=== PATIENT | female | born 1945 | race African-American/Black ===

== ENCOUNTER 2016-07-12 16:30 | Emergency (ER) | payer MEDICARE, OTHER ==
[~2016-07-12] VITALS: Ht 162.6 cm; Wt 56.7 kg
[~2016-07-12 16:30] MED LIST: MULT-208 PO
[2016-07-12 16:45] VITALS: BP 131/84
[2016-07-12] MEDS ORDERED: CLINDAMYCIN HCL 150 MG CAPSULE. PO ONE ×2 (17:15)
[2016-07-12] MEDS ORDERED: CLIN-44 PO (17:16)
--- NOTE | 2016-07-12 17:16 | PHYS DOC ---
Past Medical History Past Medical History: Hypertension Past Surgical History: No Surgical History Alcohol Use: None Drug Use: None Adult General Chief Complaint Chief Complaint: OTHER COMPLAINTS HPI HPI Patient is a 71 year old female who presents with complaint of pain and swelling to the upper lip. Patient states that she accidentally bit her lip approximately 3-4 days ago on the right side. Patient states that she started getting swelling over the last 24-48 hours. Patient noted drainage of green liquid from inside her mouth prior to coming into the emergency department for evaluation. The patient is concerned that she has developed an infection of her lip. Patient denies any other symptoms. Patient states since the drainage occurred her pain and swelling has actually improved. The patient tried calling primary physician, Dr. Rodriguez, however she was unable to schedule an appointment and thus came to the emergency department for evaluation. Patient denies any fevers and states that she feels better but is concerned that she may need to be on antibiotics for treatment. Review of Systems Review of Systems Constitutional: Denies fever or chills [] Eyes: Denies change in visual acuity, redness, or eye pain [] HENT: Upper lip swelling and pain, Denies nasal congestion or sore throat [] Respiratory: Denies cough or shortness of breath [] Cardiovascular: Denies chest pain or edema [] GI: Denies abdominal pain, nausea, vomiting, bloody stools or diarrhea [] : Denies dysuria or hematuria [] Musculoskeletal: Denies back pain or joint pain [] Integument: Denies rash or skin lesions [] Neurologic: Denies headache, focal weakness or sensory changes [] Current Medications Current Medications Current Medications Medications (Trade) Dose Ordered Sig/Promise Start Time Stop Time Status Last Admin Dose Admin Clindamycin HCl (Cleocin) 450 mg 1X ONCE 07/12/16 17:15 07/12/16 17:16 DC Allergies Allergies Allergies Coded Allergies Type Severity Reaction Last Updated Verified Sulfa (Sulfonamide Antibiotics) Allergy Intermediate 01/01/14 No latex Allergy Intermediate Rash 01/01/14 Yes Physical Exam Physical Exam Constitutional: Alert, afebrile, no acute distress. [] HENT: Normocephalic, atraumatic, moderate soft tissue swelling of upper lip with induration along right side of upper lip, small amount of purulent drainage from open lesion within lip mucosal surface, bilateral external ears normal, oropharynx moist, no oral exudates, nose normal. [] Eyes: PERRLA, EOMI, conjunctiva normal, no discharge. [] Neck: Normal range of motion, no tenderness, supple, no stridor. [] Cardiovascular:Heart rate regular rhythm, no murmur [] Lungs & Thorax: Bilateral breath sounds clear to auscultation [] Abdomen: Bowel sounds normal, soft, no tenderness, no masses, no pulsatile masses. [] Skin: Warm, dry, no erythema, no rash. [] Back: No tenderness, no CVA tenderness. [] Extremities: No tenderness, no cyanosis, no clubbing, ROM intact, no edema. [] Neurologic: Alert and oriented X 3, normal motor function, normal sensory function, no focal deficits noted. [] Current Patient Data Vital Signs Vital Signs Date Time Temp Pulse Resp B/P Pulse Ox O2 Delivery O2 Flow Rate FiO2 07/12/16 16:45 98.4 84 16 131/84 98 Room Air 98.4 EKG EKG Not performed [] Radiology/Procedures Radiology/Procedures Not performed [] Course & Med Decision Making Course & Med Decision Making Pertinent Labs and Imaging studies reviewed. (See chart for details) Patient appears to have a small lip abscess that is already draining at this time. The patient will be started on clindamycin for further treatment. Advised follow-up with Dr. Rodriguez in 2-3 days to ensure improvement and resolution of symptoms. Advised return to emergency department for any worsening symptoms. Patient was understanding and in agreement with treatment plan. Dragon Disclaimer Dragon Disclaimer This electronic medical record was generated, in whole or in part, using a voice recognition dictation system. Departure Departure Impression: Primary Impression: Abscess of lip Disposition: 01 HOME, SELF-CARE Condition: IMPROVED Referrals: BALJIT RODRIGUEZ (PCP) Patient Instructions: Abscess Additional Instructions: Follow-up in 2-[address] Rodriguez. Return to the emergency department for any worsening symptoms. Scripts Clindamycin Hcl 150 Mg [id number] Mg PO TID #90 CAP Prov:JOELLE HANKINS MD 07/12/16 JOELLE HANKINS MD Jul 12, 2016 17:16
== END 2016-07-12 17:51 | disposition home or self-care (01) ==
LOC: ER 16:30
DX: K13.0 Diseases of lips (principal); I10 Essential (primary) hypertension
CPT/HCPCS: 99283

== ENCOUNTER 2017-03-06 19:06 | Emergency (ER) | payer OTHER ==
[~2017-03-06] VITALS: Ht 162.6 cm; Wt 54.4 kg
[~2017-03-06 19:06] MED LIST changes: +CLIN150C14 PO
[2017-03-06 19:33] LABS: BASO # 0.1 x10^3/uL (0.0-0.2); BASO % 1 % (0-3); EOS % 2 % (0-3); HEMATOCRIT 29.2 % (36.0-47.0); HEMOGLOBIN 9.4 g/dL (12.0-15.5); LYMPH # 1.2 x10^3/uL (1.0-4.8); LYMPH % 21 % (24-48); MEAN CORPUSCULAR HEMOGLOBIN 29 pg (25-35); MEAN CORPUSCULAR HGB CONC 32 g/dL (31-37); MEAN CORPUSCULAR VOLUME 89 fL (79-100); MONO % 8 % (0-9); NEUT % 68 % (31-73); PLATELET COUNT 507 x10^3/uL (140-400); RED BLOOD COUNT 3.27 x10^6/uL (3.50-5.40); RED CELL DISTRIBUTION WIDTH 16.2 % (11.5-14.5); WHITE BLOOD COUNT 5.8 x10^3/uL (4.0-11.0)
[2017-03-06] MEDS ORDERED: IV NORMAL SALINE 1000ML BAG 1,000 ML IV ONE (19:45)
[2017-03-06 19:47] LABS: CALCIUM 8.6 mg/dL (8.5-10.1); CREATININE 0.7 mg/dL (0.6-1.0); GFR 99.5; POTASSIUM 3.6 mmol/L (3.5-5.1)
--- NOTE | 2017-03-06 19:48 | PHYS DOC ---
Past Medical History Past Medical History: Hypertension, Other Additional Past Medical Histor: UNKNOWN GI Past Surgical History: Other Additional Past Surgical Histo: OSTOMY PLACED Alcohol Use: None Drug Use: None Adult General Chief Complaint Chief Complaint: RECTAL BLEED HPI HPI Patient is a 71 year old female who is a very poor historian presenting to the ED today complaining of rectal bleeding. Patient states she had abdominal surgery 1 week ago at [facility] and ended up with a colostomy. Patient cannot tell what kind of surgery she had. She states she told EMS she needs to go to they brought her to this hospital. Patient is a poor historian. Denies any abdominal pain nausea vomiting. She states she's had problems with gas post op and today she sat on the toilet to have a bowel movement and had a chunk of blood that passed through relieving the gas pressure, she states she feels better. She is denying any abdominal pain or vomiting. She states she has an appointment with her general surgeon tomorrow. Patient does not know the name of the surgeon either. [facility] states patient had 8 oz of blood during the rectal bleeding. Review of Systems Review of Systems Constitutional: Denies fever or chills [] Eyes: Denies change in visual acuity, redness, or eye pain [] HENT: Denies nasal congestion or sore throat [] Respiratory: Denies cough or shortness of breath [] Cardiovascular: No additional information not addressed in HPI [] GI: Reports bloody stool. Denies abdominal pain, nausea, vomiting : Denies dysuria or hematuria [] Musculoskeletal: Denies back pain or joint pain [] Integument: Denies rash or skin lesions [] Neurologic: Denies headache, focal weakness or sensory changes [] All other systems were reviewed and found to be within normal limits, except as documented in this note. Current Medications Current Medications Current Medications Medications (Trade) Dose Ordered Sig/Promise Start Time Stop Time Status Last Admin Dose Admin Iohexol (Omnipaque 300 Mg/ml) 75 ml 1X ONCE 03/06/17 20:30 03/06/17 20:31 DC 03/06/17 20:36 75 ML Sodium Chloride 1,000 ml @ 1,000 mls/hr 1X ONCE 03/06/17 19:45 03/06/17 20:44 DC 03/06/17 20:17 1,000 MLS/HR Allergies Allergies Allergies Coded Allergies Type Severity Reaction Last Updated Verified Sulfa (Sulfonamide Antibiotics) Allergy Intermediate 01/01/14 No latex Allergy Intermediate Rash 01/01/14 Yes Physical Exam Physical Exam Constitutional: Well developed, well nourished, no acute distress, non-toxic appearance. [] HENT: Normocephalic, atraumatic, bilateral external ears normal, oropharynx moist, no oral exudates, nose normal. [] Eyes: PERRLA, EOMI, conjunctiva normal, no discharge. [] Neck: Normal range of motion, no tenderness, supple, no stridor. [] Cardiovascular:Heart rate regular rhythm, no murmur [] Lungs & Thorax: Bilateral breath sounds clear to auscultation [] Abdomen: Midline abdominal laceration noted with well approximated mary. Colostomy noted on the left side of the abdomen with normal stools, no blood. No abdominal tenderness on exam. Bowel sounds normal, soft, no masses, no pulsatile masses. [] Skin: Warm, dry, no erythema, no rash. [] Back: No tenderness, no CVA tenderness. [] Extremities: No tenderness, no cyanosis, no clubbing, ROM intact, no edema. [] Neurologic: Alert and oriented X 3, normal motor function, normal sensory function, no focal deficits noted. [] Psychologic: Affect normal, judgement normal, mood normal. [] Current Patient Data Vital Signs Vital Signs Date Time Temp Pulse Resp B/P (MAP) Pulse Ox O2 Delivery O2 Flow Rate FiO2 03/06/17 19:28 98.5 80 16 138/80 (99) 99 Room Air 98.5 Lab Values Laboratory Tests Test 03/06/17 19:18 03/06/17 19:20 03/06/17 19:26 Stool Occult Blood Positive (NEG) Lipase 100 U/L (73-393) White Blood Count 5.8 x10^3/uL (4.0-11.0) Red Blood Count 3.27 x10^6/uL (3.50-5.40) L Hemoglobin 9.4 g/dL (12.0-15.5) L Hematocrit 29.2 % (36.0-47.0) L Mean Corpuscular Volume 89 fL (79-100) Mean Corpuscular Hemoglobin 29 pg (25-35) Mean Corpuscular Hemoglobin Concent 32 g/dL (31-37) Red Cell Distribution Width 16.2 % (11.5-14.5) H Platelet Count 507 x10^3/uL (140-400) H Neutrophils (%) (Auto) 68 % (31-73) Lymphocytes (%) (Auto) 21 % (24-48) L Monocytes (%) (Auto) 8 % (0-9) Eosinophils (%) (Auto) 2 % (0-3) Basophils (%) (Auto) 1 % (0-3) Neutrophils # (Auto) 3.9 x10^3uL (1.8-7.7) Lymphocytes # (Auto) 1.2 x10^3/uL (1.0-4.8) Monocytes # (Auto) 0.5 x10^3/uL (0.0-1.1) Eosinophils # (Auto) 0.1 x10^3/uL (0.0-0.7) Basophils # (Auto) 0.1 x10^3/uL (0.0-0.2) Segmented Neutrophils % 75 % (35-66) H Lymphocytes % 20 % (24-48) L Monocytes % 5 % (0-10) Platelet Estimate Increased (ADEQUATE) Hypochromasia Slight Anisocytosis Slight Target Cells Occ Tear Drop Cells Occ Helmet Cells Occ Sodium Level 140 mmol/L (136-145) Potassium Level 3.6 mmol/L (3.5-5.1) Chloride Level 102 mmol/L (98-107) Carbon Dioxide Level 32 mmol/L (21-32) Anion Gap 6 (6-14) Blood Urea Nitrogen 10 mg/dL (7-20) Creatinine 0.7 mg/dL (0.6-1.0) Estimated GFR (Cockcroft-Gault) 99.5 BUN/Creatinine Ratio 14 (6-20) Glucose Level 118 mg/dL (70-99) H Calcium Level 8.6 mg/dL (8.5-10.1) Total Bilirubin 0.1 mg/dL (0.2-1.0) L Aspartate Amino Transferase (AST) 28 U/L (15-37) Alanine Aminotransferase (ALT) 21 U/L (14-59) Alkaline Phosphatase 165 U/L (46-116) H Total Protein 7.0 g/dL (6.4-8.2) Albumin 2.3 g/dL (3.4-5.0) L Albumin/Globulin Ratio 0.5 (1.0-1.7) L Laboratory Tests 03/06/17 19:20 Laboratory Tests 03/06/17 19:26 EKG EKG [] Radiology/Procedures Radiology/Procedures [] Course & Med Decision Making Course & Med Decision Making Pertinent Labs and Imaging studies reviewed. (See chart for details) This is a 71-year-old female patient presenting to the ED today with 1 episode of bloody stool. Patient had what appears to be colon resection with colostomy on Monday last week at [facility]. She is a very poor historian but she doesn' t know why they did the procedure. She states she had gas problems and today she sat on the toilet and small amount of blood passed through her rectum and relieved her gas pressure. She states she has an appointment with her general surgeon tomorrow and does not know the name of the surgeon. [facility] [place] [facility], prison was contacted who stated patient had 8 OZ of blood from rectum today. Patient's family member brought some paperwork that shows patient underwent an exploratory laparotomy with tumor debulking bilateral salpingo-oophorectomy with diverting ostomy at [facility]. Patient's hemoglobin is 9.4, hematocrit is 29.2, CMP with ALK of 165, positive Hemoccult. Patient is alert and oriented. Vitals are stable including blood pressure 138/80, heart rate of 80, O2 sats of 99% on room air, temperature 98.5 , respirations of [address] of the abdomen and pelvic could not identify anything acute specifically related to postop issues. 23:[address] Ma at who accepted patient for admission at , patient to be transferred by EMS. Dragon Disclaimer Dragon Disclaimer This electronic medical record was generated, in whole or in part, using a voice recognition dictation system. Departure Departure Impression: Primary Impression: Rectal bleed Disposition: 05 TRANSFER OTHER Condition: STABLE Referrals: BALJIT GARCIA (PCP) JOSEPHINE LÓPEZ APRN Mar 06, 2017 19:48
[2017-03-06 20:00] LABS: ALBUMIN 2.3 g/dL (3.4-5.0); ALBUMIN/GLOBULIN RATIO 0.5 (1.0-1.7); TOTAL BILIRUBIN 0.1 mg/dL (0.2-1.0)
[2017-03-06 20:24] LABS: NEG OBC FOB NEG; POS OBC FOB POS
[2017-03-06] MEDS ORDERED: IOHEXOL 300 MG/ML 100ML VIAL. IV ONE (20:30)
[2017-03-06 20:45] LABS: ANISOCYTOSIS SLIGHT; HELMET CELLS OCC; HYPOCHROMIA SLIGHT; PLT ESTIMATE INCREASED (ADEQUATE); TARGET CELLS OCC; TEAR DROP CELLS OCC
--- NOTE | 2017-03-06 22:01 | RAD ---
CT abdomen and pelvis with contrast 03/06/2017 Clinical indication: Rectal bleeding status post colon resection. COMPARISON: None. TECHNIQUE: Multiple CT images of the abdomen and pelvis were obtained following the intravenous administration of iodinated contrast material. *One or more of the following individualized dose reduction techniques were utilized for this examination: 1. Automated exposure control. 2. Adjustment of the mA and/or kV according to patient size. 3. Use of iterative reconstruction technique. FINDINGS: There is mild linear atelectasis in both lung bases. There is mild cardiomegaly without significant pericardial effusion. The examination is significantly limited due to technique. There are multiple perihepatic masses and a few intrahepatic masses. Health Support Specialist right lobe hepatic mass at junctions hepatic segment 5/6 measures 2.3 x 1.3 cm series 2/image 24. Partially distended gallbladder unremarkable. Spleen, adrenal glands, pancreas and kidneys are grossly unremarkable. There is infrarenal ectasia of the abdominal aorta with moderate aortoiliac calcified atheromatous disease. Prior distal colectomy and left lower quadrant colostomy.. No evidence of bowel obstruction. There is mild abdominal ascites. There is extensive abdominal and pelvic peritoneal metastatic disease. There is a punctate foci of gas near the dome of the liver series 2/image 9. Health Support Specialist dependent peritoneal metastatic disease near the right adnexa measures 3.2 x 2.2 cm series 2/image 59. Mildly distended unopacified urinary bladder grossly unremarkable. Uterus is not well evaluated by CT. There is diffuse subcutaneous edema. IMPRESSION: 1. Significantly limited exam due to technique. 2. Punctate foci of gas near the dome of the liver. Finding may be post operative given history of recent bowel surgery. 3. Distal colonic resection and left lower quadrant colostomy without bowel obstruction. 4. 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 5. Mild abdominal ascites. Electronically signed by: Paul García MD (03/06/2017 9:57 PM) [facility]
[2017-03-07 00:45] VITALS: BP 118/66
== END 2017-03-07 01:00 | disposition short-term general hospital (02) ==
LOC: ER 19:06
DX: K62.5 Hemorrhage of anus and rectum (principal); I10 Essential (primary) hypertension; Z90.49 Acquired absence of other specified parts of digestive tract; Z93.3 Colostomy status; Z88.2 Allergy status to sulfonamides; Z91.040 Latex allergy status
CPT/HCPCS: 36415; 74177; 80053; 82274; 83690; 85007; 85025; 96360; 96361; 99285; J7030; Q9967